=== PATIENT | male | born 1980 | race Caucasian/White ===

== ENCOUNTER 2017-10-27 13:36 | Emergency (ER) | payer BC, SELFPAY ==
[2017-10-27 13:37] VITALS: BP 166/85; PULSE 133; RESP 18; TEMP 36.4; O2SAT 97; BMI 34.4
--- NOTE | 2017-10-27 13:50 | RAD_ITS ---
STUDY: X-RAY - LEFT FOOT CLINICAL: Male, 37 years old. Injury. Pain. Laceration. TECHNIQUE: 4 view(s) of the foot. COMPARISON: None. FINDINGS: Normal talus, calcaneus, and tarsal bones. Normal visualized subtalar, talonavicular, calcaneocuboid, tarsal and tarsometatarsal articulations. Normal metatarsi. Normal metatarsophalangeal joint of the great toe. Normal tibial and fibular sesamoid bones. Normal interphalangeal joint of the great toe. Normal phalanges of the great toe. Normal second through fifth metatarsophalangeal joints. There is subtle lucency with nondisplaced fracture of the tuft of the second toe . There are multiple increased density foreign body structures on the skin or in the soft tissues of the second and third toes . RAD/Foot min 3 Views IMPRESSION: There is nondisplaced fracture of the second distal phalanx. Foreign body material on the skin or soft tissues of the second and third toes Electronically Signed: Alonzo Askew MD at 15:05 EDT , Service support ,
--- NOTE | 2017-10-27 15:16 | ED.VISSUMM ---
- ER Visit Summary Date of Service: 10/27/17 Chief Complaint: Crush injury to left toes History of Present Illness: The patient is a 37 M who dropped a car rotor on his left foot while wearing flip-flops. He notes severe pain to the left second and third toe. He notes abrasions to that area. Physical Examination: There is ecchymosis swelling and superficial abrasion limited range of motion to the second left toe. There is superficial abrasion and minimal pain to the dorsum of the third left toe. Test Results: X-rays revealed a possible nondisplaced talus fracture. However it is not the area that was impacted by the Angelito. Emergency Department Course and Treatment: Patient requested relief from the pain and underwent a digital block of the second toe using Marcaine. This resulted in excellent anesthesia. Wounds were cleansed and dressed. There was a postop shoe applied. I will write for oxycodone. Patient works using steel toed boots in a postop shoe is not an option. I will write him off for a few days. Return if worsening or concerns. Impression: 1. Crush injury left second and third toe 2. Abrasion left second and third toe This note was generated with Molecul[employer] dictation software. It may contain incorrect words, spelling, and punctuation that were not noted in review of the chart prior to signing ED Disposition - Plan for ED Patient: Disposition: Home or Assisted Living Chief Complaint: Lower Extremity Injury Instructions: ED Crush Injury Toe No Fx, ED Fx Toe Closed Prescriptions: Oxycodone [Oxyir] 5 - 10 mg PO Q6H PRN PRN 4 Days #20 tab PRN Reason: Pain Referrals: Aspen Ferguson DPM [STAFF PHYSICIAN] - 10-14 Days if not better
[2017-10-27 15:43] VITALS: RESP 18
[2017-10-27] MEDS: Bupivacaine Mpf 0.5% 30 ML VIAL INFILT (15:44)
== END 2017-10-27 15:44 | disposition home or self-care (01) ==
PROVIDERS: Emergency Provider Emergency Medicine
DX: S97.122A Crushing injury of left lesser toe(s), initial encounter (principal); S90.415A Abrasion, left lesser toe(s), initial encounter; X58.XXXA Exposure to other specified factors, initial encounter; Y93.9 Activity, unspecified; Y92.9 Unspecified place or not applicable; Z72.0 Tobacco use
CPT/HCPCS: 64450; 73630; 99283

== ENCOUNTER 2018-01-14 18:10 | Emergency (ER) | payer BC, SELFPAY ==
[2018-01-14 18:11] VITALS: BP 166/99; PULSE 113; RESP 16; TEMP 36.3; O2SAT 97; BMI 31.5
--- NOTE | 2018-01-14 18:59 | ED.VISSUMM ---
- ER Visit Summary Date of Service: 01/14/18 Chief Complaint: Dental pain History of Present Illness: The patient is a 37 M who had some wisdom teeth extracted this morning. He states his been taking Tylenol and ibuprofen for pain without improvement. Physical Examination: Vital signs significant for blood pressure of 166/99 with a heart rate of 113. Patient sitting upright in bed no acute distress. Head neck examination feels no facial edema or erythema. Intraoral examination reveals the right mandibular molar extraction site to be clean with a clot in place. The right maxillary site is clean with some gum destruction of the lateral surface. There is no trismus. Heart is regular rate and rhythm. Lung sounds are clear. Test Results: Emergency Department Course and Treatment: Patient has been taking ibuprofen along with Tylenol. He is given a dose of OxyIR here. He is given prescriptions for Percocet along with ibuprofen and advised not to take anything in addition [id number]. He is to continue biting on gauze for any minimal remaining bleeding. Treatment Plan: [] Disposition: Discharge Impression: Odontalgia status post dental extraction This note was generated with Chip[employer] dictation software. It may contain incorrect words, spelling, and punctuation that were not noted in review of the chart prior to signing ED Disposition - Plan for ED Patient: Disposition: Home or Assisted Living Chief Complaint: Dental Instructions: ED Tooth Pain Prescriptions: Oxycodone HCl/Acetaminophen [Percocet 5/325] 1 tablet PO Q6H PRN PRN 5 Days #20 tablet PRN Reason: Pain Ibuprofen 600 mg PO TID PRN PRN #20 tablet PRN Reason: Pain Additional Instructions: Follow-up with your dentist as scheduled.
--- NOTE | 2018-01-14 19:02 | DCINST.ED_ITS ---
ED Disposition - Plan for ED Patient: Disposition: Home or Assisted Living Chief Complaint: Dental Instructions: ED Tooth Pain Prescriptions: Oxycodone HCl/Acetaminophen [Percocet 5/325] 1 tablet PO Q6H PRN PRN 5 Days #20 tablet PRN Reason: Pain Ibuprofen 600 mg PO TID PRN PRN #20 tablet PRN Reason: Pain Additional Instructions: Follow-up with your dentist as scheduled.
[2018-01-14] MEDS: oxyCODONE 5 MG Tablet 10 MG PO (19:18)
[2018-01-14 19:20] VITALS: RESP 16
== END 2018-01-14 19:21 | disposition home or self-care (01) ==
PROVIDERS: Emergency Provider Emergency Medicine
DX: K08.89 Other specified disorders of teeth and supporting structures (principal); Z72.0 Tobacco use
CPT/HCPCS: 99283

== ENCOUNTER 2020-01-12 08:46 | Emergency (ER) | payer BC, SELFPAY ==
[2020-01-12 08:46] VITALS: BP 147/105; PULSE 102; RESP 18; TEMP 35.6; O2SAT 100; BMI 33.1
[2020-01-12 08:52] VITALS: RESP 16
--- NOTE | 2020-01-12 09:02 | ED.VISSUMM ---
- ER Visit Summary Date of Service: 01/12/20 Chief Complaint: Back pain History of Present Illness: The patient is a 39 M who presents with back pain that has been getting worse over the past 2 to 3 days. Patient denies any trauma or injury. Patient states the pain is been constant. Patient states the pain is worse with standing from a seated or lying position. Patient states the pain is worse with other movements. Patient states the pain is over the left lower lumbar paraspinal area. Patient denies any radiation of the pain. Patient denies any paresthesias or weakness. Patient denies any bowel or bladder changes. Patient denies any saddle anesthesia. Physical Examination: Vital signs are stable. Patient is afebrile. Patient is in no acute distress. Musculoskeletal exam reveals tenderness over the left lumbar paraspinal muscles. There is some spasm noted over these muscles. There is no midline tenderness. There is no bony crepitance or step-off. There is no edema or ecchymosis. Range of motion was limited in all motions of the lumbar spine secondary to pain. There is no laxity appreciated. Strength is 5/5 bilateral in the upper and lower extremities. There are no sensory deficits noted. Deep tendon reflexes are 2+/4 bilaterally in the lower extremities. Patient is able to heel and toe walk without difficulty. Emergency Department Course and Treatment: Patient was given a dose of Naprosyn here. Patient was given a prescription for Naprosyn. Patient was instructed to use ice to the area. Patient was instructed to avoid any bending or lifting. Patient was instructed to follow-up with his primary care physician in 5 to 7 days. Patient understood and was agreeable with the plan. All questions were answered. Disposition: Discharge home Impression: Lumbosacral strain This note was generated with Hokey Pokey dictation software. It may contain incorrect words, spelling, and punctuation that were not noted in review of the chart prior to signing ED Disposition - Plan for ED Patient: Disposition: Home or Assisted Living Diagnosis: Lumbosacral strain Instructions: ED LUMBAR SPRAIN/STRAIN Prescriptions: Naproxen [Naprosyn] 500 mg PO BID PRN #20 tab Transmission Status: Pending to [id number] Referrals: Barry De Leon MD [STAFF PHYSICIAN] - 5-7 Days
[2020-01-12] MEDS: Naproxen 250 MG Tablet 500 MG PO (09:12)
[2020-01-12 09:16] VITALS: BP 139/113; PULSE 98; RESP 16; O2SAT 98
--- NOTE | 2020-01-12 09:16 | ED.RN ---
REVIEWED D/C INSTRUCTIONS, FOLLOW UP CARE, PRESCRIPTION, AND S/S THAT WOULD WARRANT A RETURN TO THE ED WITH PT. PT ADVISED TO FOLLOW UP WITH PCP REGARDING HIGH BP. PT VERBALIZED AN UNDERSTANDING AND DENIES FURTHER QUESTIONS FOR THIS RN. PT SKIN P/W/D, RESP EVEN AND UNLABORED, PT A&O X 3, NO DISTRESS NOTED. PT AMBULATED OUT OF ED, GAIT STEADY.
== END 2020-01-12 09:17 | disposition home or self-care (01) ==
LOC: ED 09:10
PROVIDERS: Emergency Provider Emergency Medicine
DX: S39.012A Strain of muscle, fascia and tendon of lower back, initial encounter (principal); F17.200 Nicotine dependence, unspecified, uncomplicated; X58.XXXA Exposure to other specified factors, initial encounter
CPT/HCPCS: 99283

== ENCOUNTER 2020-01-20 03:50 | Emergency (ER) | payer BC, SELFPAY ==
[2020-01-20 03:50] VITALS: BP 169/104; PULSE 97; RESP 18; TEMP 37.1; O2SAT 97; BMI 33.6
--- NOTE | 2020-01-20 04:27 | ED.VIS.GEN ---
History of Present Illness Chief Complaint: Eye Problem Narrative: This patient is a 39-year-old male who presents with left eye pain. 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 He was under a truck and some roster fallen down. He was wearing safety glasses but still felt a piece of debris going to his left eye. He irrigated this. Throughout the night he is pain and light sensitivity worsened and he is now complaining of severe left eye pain and light sensitivity tearing and watering. He does wear contacts. He removed contacts after the injury. Past Medical History - Allergies and Home Meds Allergies/Adverse Reactions: Allergies No Known Allergies Allergy (Verified 01/12/20 08:49) Primary Care Physician: Care Physician,No Primary [Primary Care Provider] - Past Medical History: None Smoking Status: Current every day smoker Review of Systems All systems negative except as indicated General: Denies: Fever Eyes: Reports: - - Left eye pain, photophobia, tearing ENT: Denies: Bilateral ear pain Cardiovascular: Denies: Chest pain Respiratory: Denies: Dyspnea Gastrointestinal: Denies: Vomiting Skin: Denies: Rash Neurological: Denies: Headache Hematologic: Denies: Easy bruising Allergy: Denies: Uticaria Physical Exam Vital Signs/Narrative: Vital Signs Temp Pulse Resp BP Pulse Ox 01/20/20 03:50 98.7 F 97 18 169/104 H 97 General: Well nourished Head: Normocephalic Eyes: EOMI, - - Patient has diffuse injection of the left eye eyelids were everted no foreign body was visualized anterior chamber is deep and quiet, a small corneal abrasion is noted at the 2 o'clock position under slit-lamp examination no Marylin sign Neck: Supple Cardiovascular: Regular rate Respiratory: No distress Skin: Normal color Neurological: Alert Psychological: Normal affect Diagnostic/Tx/Re-eval - Medical Decision Making Slit-lamp examination was performed after tetracaine and fluorescein were applied in the left eye. Patient had immediate relief with application of tetracaine. Examination as above. Patient was given ophthalmic gentamicin as well as a prescription for short course of [place] for acute pain control. He requested an eye patch just to cover the eye for his photophobia so this was provided. He was referred to ophthalmology for follow-up. Patient was discharged. ED Disposition - Plan for ED Patient: Disposition: Home or Assisted Living Diagnosis: Corneal abrasion Instructions: ED Corneal Abrasion Prescriptions: Hydrocodone Bitart/Apap 5-325 [[place] 5MG-325MG] 1 tab PO Q6H PRN 2 Days #8 tab PRN Reason: Pain Prescription Printed Referrals: Care Physician,No Primary [Primary Care Provider] - Divina Mijares MD [STAFF PHYSICIAN] -
[2020-01-20] MEDS: Gentamicin Sulfate 1 OPTH.BTL 2 DRP LEFT EYE (04:37)
[2020-01-20] MEDS: Tetracaine 0.5% Ophthalmic Bottle 1 DRP LEFT EYE (04:37)
[2020-01-20] MEDS: Fluorescein 1 MG STRIP 1 STRIP LEFT EYE (04:37)
--- NOTE | 2020-01-20 04:38 | ED.RN ---
PT NOT ABLE TO OPEN EYE ENOUGH TO COMPLETE VISUAL ACUITY.
== END 2020-01-20 04:38 | disposition home or self-care (01) ==
PROVIDERS: Emergency Provider Emergency Medicine
DX: S05.02XA Injury of conjunctiva and corneal abrasion without foreign body, left eye, initial encounter (principal); W22.8XXA Striking against or struck by other objects, initial encounter; Y93.89 Activity, other specified; Y92.9 Unspecified place or not applicable; Y99.0 Civilian activity done for income or pay; F17.200 Nicotine dependence, unspecified, uncomplicated
CPT/HCPCS: 99284

== ENCOUNTER 2021-02-07 07:20 | Emergency (ER) | payer OTHER, SELFPAY ==
[2021-02-07 07:21] VITALS: BP 157/103; PULSE 96; RESP 16; TEMP 36; O2SAT 97; BMI 34.4
--- NOTE | 2021-02-07 07:36 | EX.ED.DYSGE1 ---
HPI History of Present Illness Chief Complaint: Headache Detail of Chief Complaint: General illness for 3 days Informant: patient Narrative Narrative: Patient presents to the emergency department stating he is not been feeling well for the last 3 days. Patient initially started with a headache and then started having vomiting and diarrhea. Patient having small amounts of watery stools frequently. Patient states that he is not thrown up since yesterday. He denies fevers. He does have a cough. He complains of body aches. He has not had the Covid vaccine. He denies Covid exposures. No sick contacts known. PFSH PFS Home Medications NK 02/07/21 [History Last Taken Unknown] Allergy/AdvReac Type Severity Reaction Status Date / Time No Known Allergies Allergy Verified 02/07/21 07:23 Social History Smoking Status: Current every day smoker tobacco type: cigarettes ROS ROS ED Constitutional Constitutional ED: Reports systems reviewed and no addt'l complaints, except as documented; Denies body ache(s), change in weight or chills Eyes Eyes: Denies acute decrease in peripheral vision, change in vision, double vision or loss of vision ENT ENT ED: Reports none; Denies ear pain, lip swelling, loss taste/smell, neck pain, otalgia or sore throat Cardiovascular Cardiovascular: Reports none; Denies abdominal pain, chest pain with activity, leg edema, lightheadedness, palpitations, rapid heart rate or syncope Respiratory/Chest Respiratory/Chest: Reports none and cough; Denies change in mental status, dry cough, dyspnea, hemoptysis, shortness of breath at rest or shortness of breath with exertion Gastrointestinal Gastrointestinal: Reports none, diarrhea, nausea and vomiting; Denies abdominal pain, change in stool character, hematemesis, hematochezia, melena or rectal bleeding Genitourinary Genitourinary ED: Reports none; Denies abdominal discomfort, anuria, dysuria, genital pain or polyuria Musculoskeletal Musculoskeletal: Reports none and myalgias; Denies arthralgias, back pain, difficulty walking, extremity pain or muscle weakness Integumentary Reports none; Denies abscess or rash Neurologic Neurologic: Reports none and headache(s); Denies abnormal gait, confusion, focal weakness, frequent falls, loss of vision, numbness, paresthesias, radicular pain, vertigo or weakness Psychiatric Psychiatric: Reports systems reviewed and no addt'l complaints, except as documented and none; Denies behavioral changes, confusion, difficulty concentrating, hallucinations, suicidal ideation, tactile hallucinations or visual hallucinations Endocrine Endocrinology: Denies none, cold intolerance, excessive sweating, fatigue or heat intolerance Hematologic/Lymphatic Hematologic/Lymphatic: Reports none; Denies anemia, easy bleeding or easy bruising Allergic/Immunologic Allergic/Immunologic ED: Denies as per HPI, none, lip swelling, mouth swelling, throat swelling, tongue swelling or hives EXAM Physical Exam Const Vital Signs: 02/07/21 07:21 Temperature 96.8 F L Temperature Source Temporal Pulse Rate 96 Respiratory Rate 16 Blood Pressure 157/103 H Blood Pressure Mean 121 Pulse Ox 97 Oxygen Delivery Method Room Air Positive well nourished and well developed General Appearance ED: well developed and NAD HEENT Reports TM's clear and moist mucous membranes normocephalic and atraumatic; Negative for trauma or tenderness Tympanic Membrane ED: Yes TM's clear Eyes PERRL and EOMs intact bilaterally General Eye ED: Negative for pale conjunctiva or scleral icterus Neck no lymphadenopathy, supple and no JVD General: Negative for tenderness Chest Wall inspection of chest normal and palpation of chest normal Chest: Negative for tenderness Resp normal respiratory effort and clear to auscultation bilaterally Effort and Inspection: Negative for respiratory distress or pain with movement Auscultation: Negative for rhonchi, wheezes or diminished lung sounds Cardio regular rate, regular rhythm, S1 normal heart sound, S2 normal heart sound and no murmurs Peripheral Pulses: pulses 2+ throughout GI normal to inspection, nondistended, normoactive bowel sounds, soft to palpation, non-tender, non-distended and no masses Back/Spine no CVA tenderness and no thoracic nor lumbar tenderness Extremity normal to inspection General Extremety ED: Negative for edema General Extremity: Negative for edema Neuro oriented x3, CN's II-XII intact bilaterally, no sensory deficits noted and gait normal Sensorium / Orientation: awake, alert, oriented to person, oriented to place and oriented to time Motor Exam: strength 5/5 throughout and strength abnormal Psych mental status grossly normal Skin no rashes or lesions noted and no wounds MDM MDM MDM Narrative Medical decision making narrative: Rapid Covid test was negative. I will send off a PCR test. It is possible he may have a gastroenteritis that seems to be improving. He will be written off work for today. If his PCR test is positive he is to quarantine for 10 days. Patient advised to push fluids and use ibuprofen or Tylenol for discomfort. Lab Data Attestation: I reviewed the patient's lab results. Discharge Plan Triage Chief Complaint: Headache ED Provider: Braydon Simon Dx/Rx/DC Orders Clinical Impression: Viral syndrome Instructions: ED Viral Syndrome (Adult) Prescriptions: No Action NK RF: 0 Primary Care Provider: Care Physician,No Primary Referrals: Last Greenwood MD [STAFF PHYSICIAN] - 3-5 Days Care Physician,No Primary [Primary Care Provider] - Disposition Disposition: Home, Self Care
[2021-02-07 09:24] VITALS: BP 138/74; PULSE 62; RESP 15; O2SAT 98
[2021-02-07 22:31] LABS: Probe Check PASS; Specimen Processing Control PASS
== END 2021-02-07 09:24 | disposition home or self-care (01) ==
PROVIDERS: Emergency Provider Emergency Medicine
DX: B34.9 Viral infection, unspecified (principal); F17.210 Nicotine dependence, cigarettes, uncomplicated
CPT/HCPCS: 87426; 87635; 99282; U0005; U0003

== ENCOUNTER 2023-12-17 05:15 | Emergency (ER) | payer SELFPAY ==
[2023-12-17 05:16] VITALS: BP 145/89; PULSE 111; RESP 18; TEMP 36.8; O2SAT 96; BMI 36.7
[2023-12-17 05:18] VITALS: BP 145/89; PULSE 110; RESP 18; TEMP 36.8; O2SAT 98
--- NOTE | 2023-12-17 05:59 | ED.VIS.DYS ---
HPI History of Present Illness Chief Complaint: Shortness of Breath Informant: patient Onset/Context/Timing Onset: Yesterday Context: gradual Timing: Continuous Quality: Positive for Orthopnea Worsened by: Lying flat Relieved by: - (Cold air) Associated Symptoms cough and rhinorrhea; Negative for ear pain, fever, sore throat, chills, clear sputum, white sputum, yellow sputum or green sputum Narrative Narrative: Patient presents with shortness of breath that began yesterday. Patient states it is greatly gotten worse. Patient states it is constant. Patient states his breathing is worse with laying flat. Patient states he got better when he went out into the cold air. Patient admits to a cough but denies any sputum production. Patient does admit to some rhinorrhea. Patient admits to some burning pain in his chest. Patient states it feels like his lungs are burning. Patient does admit to recent car ride to [place] last week. Patient states he did get out of the car periodically and ambulated. Patient denies any history of PE or cancer. Patient denies any recent surgery. 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) Home Medications ?Medication ?Instructions ?Recorded ?Last Taken ?Type albuterol sulfate 90 mcg/actuation 1 - 2 puff inhalation Q4H PRN PRN 12/17/23 Unknown Rx aerosol inhaler (Ventolin HFA) Wheezing ##1 Allergy/AdvReac Type Severity Reaction Status Date / Time No Known Allergies Allergy Verified 12/17/23 05:19 Social History Smoking Status: Current every day smoker tobacco type: cigarettes ROS ROS ED Constitutional Constitutional ED: Denies chills or fever(s) Eyes Eyes: Reports blurry vision; Denies diplopia ENT ENT ED: Denies rhinorrhea or sore throat Cardiovascular Cardiovascular: Reports chest pain; Denies palpitations Respiratory/Chest Respiratory/Chest: Reports cough and dyspnea Gastrointestinal Gastrointestinal: Denies nausea or vomiting Genitourinary Genitourinary ED: Denies dysuria or hematuria Musculoskeletal Musculoskeletal: Denies back pain or neck pain Integumentary Denies abscess or rash Neurologic Neurologic: Reports headache(s); Denies weakness Allergic/Immunologic Allergic/Immunologic ED: Denies mouth swelling or urticaria EXAM Physical Exam Const Vital Signs: 12/17/23 05:16 12/17/23 05:18 12/17/23 06:33 Temperature 98.3 F 98.3 F Temperature Source Oral Oral Pulse Rate 111 H 110 H 100 Respiratory Rate 18 18 17 Respiratory Effort Respiratory Depth Respiratory Pattern Normal Blood Pressure 145/89 H 145/89 H Blood Pressure Mean 107 107 Pulse Ox 96 98 Oxygen Delivery Method Room Air Room Air 12/17/23 06:33 12/17/23 07:16 12/17/23 07:18 Temperature 98.2 F Temperature Source Temporal Pulse Rate 111 H 105 H Respiratory Rate 20 H 24 H Respiratory Effort Short of Breath Respiratory Depth Shallow Respiratory Pattern Normal Blood Pressure 134/80 H 134/80 H Blood Pressure Mean 98 98 Pulse Ox 95 96 Oxygen Delivery Method Room Air Room Air Room Air Positive well nourished and well developed General Appearance ED: well developed and NAD HEENT Reports moist mucous membranes Neck supple and no JVD Resp normal respiratory effort and clear to auscultation bilaterally Cardio regular rhythm Rate: tachycardic GI non-tender and non-distended Palpation: soft Neuro oriented x3, CN's II-XII intact bilaterally and no sensory deficits noted [place] Coma Scale: document GCS findings Spontaneous Obeys Commands Oriented 15 Sensorium / Orientation: alert Speech: speech normal Motor Exam: strength 5/5 throughout Psych mental status grossly normal MDM MDM MDM Narrative Medical decision making narrative: Differential diagnosis includes pneumonia, bronchitis, pulmonary embolism, congestive heart failure, and viral illness. Chest x-ray will be obtained to assess for pneumonia and congestive heart failure. EKG will be obtained to assess for cardiac dysrhythmia and cardiac ischemia. CBC will be obtained to assess for leukocytosis and anemia. Basic metabolic profile will be obtained to assess for renal function and electrolyte abnormality. D-dimer will be obtained to assess for pulmonary embolism. BNP will be obtained to assess for congestive heart failure. High-sensitivity troponin will be obtained to assess for cardiac ischemia. COVID-19, influenza, and RSV PCR will be obtained to assess for viral illness. Lab Data Attestation: I reviewed the patient's lab results. Lab results narrative: CBC was reviewed. There is a leukocytosis of 14.0. The remainder is within normal limits. Basic metabolic profile was reviewed and was within normal limits. High-sensitivity troponin was reviewed and was normal at 3. D-dimer was reviewed and was normal at less than 0.27. COVID-19 PCR was reviewed and was negative. Influenza PCR was reviewed and was negative for influenza A and influenza B. RSV PCR was reviewed and was negative. Labs: Laboratory Results - last 24 hr 12/17/23 05:35 WBC 14.0 H RBC 4.86 Hgb 14.8 Hct 43.9 MCV 90.3 MCH 30.5 MCHC 33.7 RDW Std Deviation 42.9 RDW Coeff of Keyur 13.1 Plt Count 248 MPV 10.0 Immature Gran % (Auto) 0.500 Neut % (Auto) 65.8 Lymph % (Auto) 23.6 [place] % (Auto) 7.3 Eos % (Auto) 2.0 Baso % (Auto) 0.8 Absolute Neuts (auto) 9.2 H Absolute Lymphs (auto) 3.30 Nucleated RBC % 0 D-Dimer Quant (PE/DVT) < 0.27 L Sodium 136 Potassium 3.8 Chloride 104 Carbon Dioxide 26.0 Anion Gap 6 BUN 14 Creatinine 0.90 Estim Creat Clear Calc 136.53 Est GFR (MDRD) Af Amer 119 Est GFR (MDRD) Non-Af 98 BUN/Creatinine Ratio 15.5 Glucose 138 H Calcium 8.8 Troponin I High Sens 3 Radiography Chest X-Ray - ED: 2 View, Read by ED Physician, Read by Radiologist and No Acute Disease Diagnostic Testing: Clinical Impression(s) from Imaging Studies Chest X-Ray 12/17/23 06:05 IMPRESSION: No evidence of active intrathoracic disease. Electronically Signed: Zehra Mercer MD at 7:16 EDT , PA and lateral chest x-ray was obtained. There are 2 views. On my independent interpretation, lung larios are clear. There is normal cardiac silhouette. Bony thorax is normal. There is no acute process noted. Radiologist also interpreted the x-ray and agrees. EKG Initial EKG: Attestation: I personally reviewed and interpreted this EKG as follows: Interpretation: Sinus Rhythm (96), No Acute Injury Pattern and RBBB (Incomplete) Comments: EKG was obtained. On my independent interpretation, it showed a normal sinus rhythm with a rate of 96. AR interval, QRS interval, and QTc intervals were all normal. [place] was normal. There are no acute ST or T wave changes. There is an incomplete right bundle branch block pattern noted. Prior EKG tracings: not available for review Prior: No Prior Treatment and Re-Evaluation :: Patient was given a DuoNeb aerosol here. Patient is feeling better on reevaluation. Patient was advised of his findings. Patient was given a prescription for an albuterol inhaler. Patient was instructed to drink plenty of fluids. Patient was instructed to take Tylenol or ibuprofen as needed for any aches or fevers. Patient was instructed to follow-up with his primary care physician in 5 to 7 days. Patient understood and was agreeable with the plan. All questions were answered. Discharge Plan Triage Chief Complaint: Shortness of Breath ED Provider: Hiren Smith Dx/Rx/DC Orders Clinical Impression: Acute bronchitis, Viral URI Instructions: ED Bronchitis, No Antibiotic (Adult), ED URI, Viral, No Abx (Adult) Prescriptions: New albuterol sulfate [Ventolin HFA] 90 mcg/actuation HFA aerosol inhaler 1 - 2 puff inhalation Q4H PRN PRN (Reason: Wheezing) Qty: 1 0RF Stand Alone Forms: ED Work / School Excuse Primary Care Provider: Care Physician,No Primary Referrals: Eveline Medina MD [Med Staff - Information Systems Planner] - 5-7 Days Care Physician,No Primary [Primary Care Provider] - Print Language: [place] Citizen Disposition Disposition: Home, Self Care
--- NOTE | 2023-12-17 06:05 | RAD_ITS ---
INDICATION: COUGH EXAMINATION/TECHNIQUE: X-RAY - XR Chest 2 Views COMPARISON: No relevant prior comparison study available FINDINGS: LINES/DEVICES: None. LUNGS: No consolidation. No pneumothorax. MEDIASTINUM: Unremarkable. CARDIAC SILHOUETTE: Not enlarged. BONES AND SOFT TISSUES: No acute abnormalities. RAD/Chest PA and Lateral IMPRESSION: No evidence of active intrathoracic disease. Electronically Signed: Zehra Mercer MD at 7:16 EDT ,
--- NOTE | 2023-12-17 06:05 | EKG12_ITS ---
Test Reason : SOB Blood Pressure : / mmHG Vent. Rate : 096 BPM Atrial Rate : 096 BPM P-R Int : 130 ms QRS Dur : 104 ms QT Int : 348 ms P-R-T Axes : 014 -04 014 degrees QTc Int : 439 ms Normal sinus rhythm Incomplete right bundle branch block Borderline ECG Confirmed by ARISTIDES PECK, SARAH BETH ([id number]), scientific editor JORGE GONG ([id number]) on 12/18/2023 10:36:04 AM Referred By: Confirmed By:SARAH BETH IRVING MD
[2023-12-17 06:15] LABS: Absolute Neutrophil Count 9.2 X10^3/uL (2.0-7.7); Basophil# 0.11 X10^3/uL; Basophil% 0.8 % (0-1); Eosinophil# 0.28 X10^3/uL; Hematocrit 43.9 % (40-54); Hemoglobin 14.8 g/dL (13.0-16.5); Lymphocyte % 23.6 % (19-41); Mean Corp Hgb Conc 33.7 g/dL (32-36); Mean Corpuscular Hgb 30.5 pg (27.0-32.0); Mean Corpuscular Volume 90.3 fL (80-94); Monocyte# 1.02 X10^3/uL; Monocyte% 7.3 % (0-10); NRBC Flagged by Analyzer 0 % (0-5); Neutrophil # 9.23 X10^3/uL (2.7-7.7); Neutrophil % 65.8 % (47-70); Platelet Count 248 K/mm3 (150-450); RBC Distribution Width CV 13.1 % (11.6-14.6); RBC Distribution Width SD 42.9 fl (35.1-43.9); Red Blood Count 4.86 M/mm3 (4.6-6.2)
[2023-12-17 06:31] LABS: Anion Gap 6 (5-15); BUN 14 mg/dL (7-18); BUN/Creat Ratio 15.5 RATIO (10-20); Calcium,Total 8.8 mg/dL (8.5-10.1); Chloride 104 mmol/L (98-107); EST Glomerular Filtration Rate 98 mL/min (>60); Est Glom Filt Rate - Afr Amer 119 mL/min (>60); Estimated Creatinine Clearance 136.53 ml/min; Glucose 138 mg/dL (74-106); Potassium 3.8 mmol/L (3.5-5.1); Sodium Level 136 mmol/L (136-145); Troponin-I HS 3 pg/mL (3.0-78.0)
[2023-12-17] MEDS: Ipratropium/Albuterol Sulfate 3 ML AMPUL.NEB INHALATION (06:32)
[2023-12-17 06:33] VITALS: PULSE 100; RESP 17; O2SAT 98
[2023-12-17 06:41] LABS: D-Dimer Quantitative (DVT/PE) < 0.27 FEU/ug/m (0.27-0.49)
[2023-12-17 07:16] VITALS: BP 134/80; PULSE 111; RESP 20; O2SAT 95
[2023-12-17 07:18] VITALS: BP 134/80; PULSE 105; RESP 24; TEMP 36.8; O2SAT 96
[2023-12-17 07:50] VITALS: BP 127/92; PULSE 104; RESP 20; TEMP 36.9; O2SAT 94
[2023-12-17 08:00] LABS: BNP,B-Type NATRIURETIC PEPTIDE 4.3 pg/mL (0-100)
== END 2023-12-17 07:50 | disposition home or self-care (01) ==
PROVIDERS: Emergency Provider Emergency Medicine; Visit Provider Emergency Medicine
DX: J20.9 Acute bronchitis, unspecified (principal); J06.9 Acute upper respiratory infection, unspecified; F17.210 Nicotine dependence, cigarettes, uncomplicated
CPT/HCPCS: 71046; 80048; 83880; 84484; 85025; 85379; 87631; 93005; 94640; 99284

== ENCOUNTER 2023-12-22 09:19 | Inpatient (IN) | payer SELFPAY ==
[2023-12-22] VITALS (15 sets, daily range): BP systolic 128–156; BP diastolic 79–116; PULSE 90–105; RESP 16–93; TEMP 36.6–37.2; O2SAT 88–96; BMI 34.6
--- NOTE | 2023-12-22 10:07 | ED.VIS.DYS ---
HPI History of Present Illness Chief Complaint: Shortness of Breath Detail of Chief Complaint: Shortness of breath Informant: patient Narrative Narrative: Patient presents with shortness of breath that started about a week ago. Patient states that he is gotten worse over the last 5 days. He was seen in the emergency department 5 days ago with some burning in his chest and was diagnosed with some bronchitis. Patient states that he thinks he had blood work as well as a chest x-ray and testing for COVID flu and RSV which was negative. Patient complains of exertional dyspnea. He continues to wheeze. He had temperature up to 101 a few days ago and this morning was 99. Patient did travel to [place] about a week before all this started. No history of PE or DVT. He describes some burning in his chest and pain from coughing in his muscles in his chest and upper abdomen. He tells me his had no appetite. [facility] Medical History Encounter for examination required by Department of Transportation (DOT) Home Medications ?Medication ?Instructions ?Recorded ?Last Taken ?Type albuterol sulfate 90 mcg/actuation 1 - 2 puff inhalation Q4H PRN PRN 12/17/23 Unknown Rx aerosol inhaler (Ventolin HFA) Wheezing ##1 Allergy/AdvReac Type Severity Reaction Status Date / Time No Known Allergies Allergy Verified 12/17/23 05:19 Social History Smoking Status: Current every day smoker tobacco type: cigarettes ROS ROS ED Review of Systems ROS Unobtainable: other Constitutional Constitutional ED: Denies chills, fever(s), lethargy, sweats or weight loss Eyes Eyes: Denies blurry vision, change in vision or diplopia ENT ENT ED: Denies rhinorrhea or sore throat Cardiovascular Cardiovascular: Reports chest pain; Denies orthopnea or racing heartbeat Respiratory/Chest Respiratory/Chest: Reports cough, dyspnea and dyspnea on exertion; Denies orthopnea or sputum Gastrointestinal Gastrointestinal: Denies abdominal pain, diarrhea, nausea or vomiting Genitourinary Genitourinary ED: Denies dysuria, hematuria or urinary frequency Musculoskeletal Musculoskeletal: Denies arthralgias, back pain, myalgias or neck pain Integumentary Denies abscess, Abrasions or rash Neurologic Neurologic: Denies headache(s) or weakness Psychiatric Psychiatric: Denies anxiety, depression or suicidal thoughts Endocrine Endocrinology: Denies polydipsia, polyphagia or polyuria Hematologic/Lymphatic Hematologic/Lymphatic: Denies easy bleeding, easy bruising or lymphadenopathy Allergic/Immunologic Allergic/Immunologic ED: Denies mouth swelling, tongue swelling or urticaria EXAM Physical Exam Const Vital Signs: 12/22/23 09:21 12/22/23 09:36 12/22/23 10:06 Temperature 99 F Temperature Source Oral Pulse Rate 99 Respiratory Rate 20 H Respiratory Depth Shallow Blood Pressure 136/90 H Blood Pressure Mean 105 Pulse Ox Oxygen Delivery Method Room Air Room Air Room Air Oxygen Flow Rate (L/min) 95 12/22/23 10:14 12/22/23 10:26 12/22/23 10:57 Temperature 98 F Temperature Source Oral Pulse Rate 92 102 H Respiratory Rate 16 19 H Respiratory Depth Blood Pressure 139/89 H Blood Pressure Mean 105 Pulse Ox 95 88 Oxygen Delivery Method Room Air Room Air Oxygen Flow Rate (L/min) 12/22/23 10:57 12/22/23 10:58 12/22/23 12:00 Temperature 98.2 F 97.8 F Temperature Source Oral Temporal Pulse Rate 98 93 Respiratory Rate 93 H 20 H 23 H Respiratory Depth Blood Pressure 128/79 H 146/95 H Blood Pressure Mean 95 112 Pulse Ox 92 90 Oxygen Delivery Method Nasal Cannula Nasal Cannula Nasal Cannula Oxygen Flow Rate (L/min) 2 2 2 Positive well nourished and well developed General Appearance ED: well developed and NAD HEENT Reports TM's clear and moist mucous membranes normocephalic and atraumatic; Negative for trauma or tenderness Tympanic Membrane ED: Yes TM's clear Eyes PERRL and EOMs intact bilaterally General Eye ED: Negative for pale conjunctiva or scleral icterus Neck no lymphadenopathy, supple and no JVD General: Negative for tenderness Chest Wall inspection of chest normal and palpation of chest normal Chest: Negative for tenderness Resp normal respiratory effort and No clear to auscultation bilaterally Resp Narrative: Patient with coarse rhonchi bilaterally and expiratory wheezes bilaterally. No significant tachypnea. No clinical research scientist muscle use or retractions. No conversational dyspnea. Effort and Inspection: Negative for respiratory distress or pain with movement Auscultation: wheezes; Negative for rhonchi or diminished lung sounds Cardio regular rate, regular rhythm, S1 normal heart sound, S2 normal heart sound and no murmurs Peripheral Pulses: pulses 2+ throughout GI normal to inspection, nondistended, normoactive bowel sounds, soft to palpation, non-tender, non-distended and no masses Back/Spine no CVA tenderness and no thoracic nor lumbar tenderness Extremity normal to inspection General Extremety ED: Negative for edema General Extremity: Negative for edema Neuro oriented x3, CN's II-XII intact bilaterally, no sensory deficits noted and gait normal Sensorium / Orientation: awake, alert, oriented to person, oriented to place and oriented to time Motor Exam: strength 5/5 throughout and strength abnormal Psych mental status grossly normal Skin no rashes or lesions noted and no wounds MDM MDM MDM Narrative Medical decision making narrative: Patient presents with increasing shortness of breath with exertion as well as fever. In the differential would be pneumonia versus viral etiology versus pneumothorax or other process. PE would be in the differential. IV line established. CBC with differential white count 17.2 with hemoglobin 14 and platelet count of 322. Chemistries unremarkable. D-dimer normal at 0.37. Troponin normal at 5. EKG obtained showed sinus rhythm with rate of 95 bpm with no acute ST segment changes. On chest x-ray as noted he has a left lower lobe infiltrate and developing consolidation. Patient was started on Rocephin and Zithromax IV. Initially he was given DuoNeb aerosol as well as albuterol and started on Solu-Medrol. Patient had to be started on oxygen as his O2 sat was maintaining in the 88% range and was started on 2 L nasal cannula O2. On 2 L he is right around 90%. Case will be discussed with hospitalist for admission Lab Data Attestation: I reviewed the patient's lab results. Labs: Laboratory Results - last 24 hr 12/22/23 09:25 WBC 17.2 H RBC 4.74 Hgb 14.3 Hct 42.4 MCV 89.5 MCH 30.2 MCHC 33.7 RDW Std Deviation 42.9 RDW Coeff of Keyur 13.0 Plt Count 322 MPV 10.3 Immature Gran % (Auto) 0.500 Neut % (Auto) 78.1 H Lymph % (Auto) 12.8 L Noble % (Auto) 6.4 Eos % (Auto) 1.6 Baso % (Auto) 0.6 Absolute Neuts (auto) 13.5 H Absolute Lymphs (auto) 2.20 Nucleated RBC % 0 D-Dimer Quant (PE/DVT) 0.37 Sodium 137 Potassium 3.6 Chloride 104 Carbon Dioxide 26.0 Anion Gap 7 BUN 9 Creatinine 0.87 Estim Creat Clear Calc 137.08 Est GFR (MDRD) Af Amer 123 Est GFR (MDRD) Non-Af 102 BUN/Creatinine Ratio 10.3 Glucose 164 H Calcium 9.3 Troponin I High Sens 5 Radiography Diagnostic Testing: Clinical Impression(s) from Imaging Studies Chest X-Ray 12/22/23 10:33 IMPRESSION: 1. Interval development of mild left lower lobe basilar atelectasis with trace pleural fluid and developing consolidation. The remaining bilateral lung larios are clear. Electronically Signed: Agustín Houston MD at 11:30 EDT Reading Location ID and State: [address] [place] [address] , Service support , Chest CTA 12/22/23 12:52 IMPRESSION: 1. Moderate left lower lobe atelectasis with air bronchograms and mild superimposed patchy pneumonic consolidation with interstitial thickening and edema in the surrounding parenchyma is present. The remaining bilateral lung larios are clear. No demonstrated pleural effusion. Normal trachea and mainstem bilateral bronchi. 2. No demonstrated pulmonary embolism or arterial dissection. 3. A follow-up exam should be obtained within one month of treatment to ensure the process clears and no occult process is present. Electronically Signed: Agustín Houston MD at 15:32 EDT , 1 view chest x-ray obtained interpreted by myself is left lower lobe infiltrate. Radiology in agreement. EKG Initial EKG: Attestation: I personally reviewed and interpreted this EKG as follows: Comments: Sinus rhythm with ventricular rate 95 bpm with no acute ST segment changes Discharge Plan Dx/Rx/DC Orders Clinical Impression: Pneumonia, Hypoxemia, Leukocytosis Disposition Disposition: Acute Care Hospital [facility] Discharge Date/Time: 12/22/23 15:41
[2023-12-22] MEDS: Albuterol 2.5 MG/3 ML VIAL.NEB. INHALATION (10:11)
[2023-12-22] MEDS: Ipratropium/Albuterol Sulfate 3 ML AMPUL.NEB INHALATION ×2 (10:11→20:00)
[2023-12-22] MEDS: MethylPREDNISolone 125 MG/2 ML Vial IV (10:14)
[2023-12-22] MEDS: 0.9% Normal Saline (1000mL) 1,000 ML 150 ML IV (10:14)
[2023-12-22 10:33] LABS: Absolute Neutrophil Count 13.5 X10^3/uL (2.0-7.7); Basophil# 0.11 X10^3/uL; Basophil% 0.6 % (0-1); Eosinophil# 0.27 X10^3/uL; Eosinophils% 1.6 % (0-5); Hematocrit 42.4 % (40-54); Hemoglobin 14.3 g/dL (13.0-16.5); Lymphocyte % 12.8 % (19-41); Mean Corp Hgb Conc 33.7 g/dL (32-36); Mean Corpuscular Hgb 30.2 pg (27.0-32.0); Mean Corpuscular Volume 89.5 fL (80-94); Mean Platelet Vol. 10.3 fl (6.2-12.0); Monocyte% 6.4 % (0-10); NRBC Flagged by Analyzer 0 % (0-5); Neutrophil # 13.47 X10^3/uL (2.7-7.7); Neutrophil % 78.1 % (47-70); Platelet Count 322 K/mm3 (150-450); RBC Distribution Width SD 42.9 fl (35.1-43.9); Red Blood Count 4.74 M/mm3 (4.6-6.2); White Blood Count 17.2 K/mm3 (4.4-11.0)
--- NOTE | 2023-12-22 10:33 | RAD_ITS ---
STUDY: X-RAY CHEST REASON FOR EXAM: Male, 43 years old. dyspnea TECHNIQUE: PA and lateral views of the chest. COMPARISON: December 17, 2023 FINDINGS: Interval development of mild left lower lobe basilar atelectasis with trace pleural fluid and developing consolidation. The remaining bilateral lung larios are clear. Normal size heart. Normal mediastinum and mg. Normal visualized pulmonary arteries. Normal visualized aortic arch and descending thoracic aorta. Normal visualized thoracic spine. Normal visualized ribs, clavicles, and shoulders. There is no demonstrated abnormality of the visualized soft tissue structures of the upper abdomen. RAD/Chest PA and Lateral IMPRESSION: 1. Interval development of mild left lower lobe basilar atelectasis with trace pleural fluid and developing consolidation. The remaining bilateral lung larios are clear. Electronically Signed: Agustín Houston MD at 11:30 EDT ,
[2023-12-22 10:40] LABS: D-Dimer Quantitative (DVT/PE) 0.37 FEU/ug/m (0.27-0.49)
[2023-12-22 10:49] LABS: Anion Gap 7 (5-15); BUN 9 mg/dL (7-18); BUN/Creat Ratio 10.3 RATIO (10-20); Calcium,Total 9.3 mg/dL (8.5-10.1); Chloride 104 mmol/L (98-107); Creatinine, Serum 0.87 mg/dL (0.70-1.30); EST Glomerular Filtration Rate 102 mL/min (>60); Est Glom Filt Rate - Afr Amer 123 mL/min (>60); Estimated Creatinine Clearance 137.08 ml/min; Glucose 164 mg/dL (74-106); Potassium 3.6 mmol/L (3.5-5.1); Sodium Level 137 mmol/L (136-145); Troponin-I HS 5 pg/mL (3.0-78.0)
--- NOTE | 2023-12-22 12:50 | PCM.HP.STD ---
HPI - General General Date of Admission: 12/22/23 Date of Service: 12/22/23 Chief Complaint: Worsening shortness of breath with cough HPI Narrative TROY FUNES, is a 43 M who presented to [facility] ED on 12/22/2023 with worsening shortness of breath and cough. Saw patient at bedside in the ED, present. Patient was seen in the ED on 12/16 for similar symptoms. He states that the symptoms started a day or 2 prior to that visit. Workup then was largely negative and it was suspected that he had a viral bronchitis, and he was discharged home in the ED. He notably was given a DuoNeb treatment during that ED visit with some improvement. He states that since that ED visit he has had no improvement and symptoms have somewhat worsened. He and note that he is essentially never sick. He is a current smoker, smokes about 1/2 pack/day and is smoked for about 10 to 15 years. On arrival today he was noted to be hypoxic to the mid 80s on room air. Improved to the high 80s to low 90s on 2 L nasal cannula. Chest x-ray showed interval development of mild left lower lobe consolidation concerning for pneumonia in comparison to chest x-ray from 12/16. CTA chest was negative for PE, showed a moderate left lower lobe atelectasis with air bronchograms and mild superimposed patchy pneumonic consolidation consistent with pneumonia. Had leukocytosis to 17,000 noted. Was otherwise afebrile and hemodynamically stable. Given suspected community-acquired pneumonia with hypoxia, hospitalist was contacted for admission. Patient was breathing comfortably on 2 L nasal cannula when I saw him. He had no conversational dyspnea. He did have several short coughing episodes during our encounter but no sputum production. States that he only occasionally has had sputum production and it has been fairly clear to yellow-tinged. He otherwise states that his appetite has been fairly poor over the last few days and he is lost some weight. Denies any fevers or chills. No other acute concerns at this time. [facility] Medical History Encounter for examination required by Department of Transportation (DOT) Home Medications ?Medication ?Instructions ?Recorded ?Last Taken ?Type albuterol sulfate 90 mcg/actuation 1 - 2 puff inhalation Q4H PRN PRN 12/17/23 Unknown Rx aerosol inhaler (Ventolin HFA) Wheezing ##1 Allergy/AdvReac Type Severity Reaction Status Date / Time No Known Allergies Allergy Verified 12/17/23 05:19 Social History Smoking Status: Current every day smoker tobacco type: cigarettes ROS Constitutional Constitutional: Reports fatigue; Denies chills, fever(s) or weakness Eyes Eyes: Denies change in vision Cardiovascular Cardiovascular: Denies chest pain Respiratory/Chest Respiratory/Chest: Reports cough and shortness of breath with exertion; Denies productive cough, shortness of breath at rest or wheezing Gastrointestinal Gastrointestinal: Denies abdominal pain, nausea or vomiting Genitourinary Genitourinary: Denies dysuria Musculoskeletal Musculoskeletal: Denies arthralgias or myalgias Neurologic Neurologic: Denies dizziness, focal weakness or headache(s) Vital Signs Vital Signs Vital Signs: 12/22/23 09:21 12/22/23 09:36 12/22/23 10:06 Temperature 99 F Temperature Source Oral Pulse Rate 99 Respiratory Rate 20 H Respiratory Depth Shallow Blood Pressure 136/90 H Blood Pressure Mean 105 Pulse Ox Oxygen Delivery Method Room Air Room Air Room Air Oxygen Flow Rate (L/min) 95 12/22/23 10:14 12/22/23 10:26 12/22/23 10:57 Temperature 98 F Temperature Source Oral Pulse Rate 92 102 H Respiratory Rate 16 19 H Respiratory Depth Blood Pressure 139/89 H Blood Pressure Mean 105 Pulse Ox 95 88 Oxygen Delivery Method Room Air Room Air Oxygen Flow Rate (L/min) 12/22/23 10:57 12/22/23 10:58 12/22/23 12:00 Temperature 98.2 F 97.8 F Temperature Source Oral Temporal Pulse Rate 98 93 Respiratory Rate 93 H 20 H 23 H Respiratory Depth Blood Pressure 128/79 H 146/95 H Blood Pressure Mean 95 112 Pulse Ox 92 90 Oxygen Delivery Method Nasal Cannula Nasal Cannula Nasal Cannula Oxygen Flow Rate (L/min) 2 2 2 Weight Weight: 109.543 kg Body Mass Index (BMI) 34.6 Physical Exam Const alert, oriented x3 and no apparent distress Constitutional Narrative: Pleasant middle-age male, obese, mildly fatigued appearing, otherwise sitting up comfortably in bed, conversing normally, in no acute distress. General Appearance: cooperative and comfortable HEENT normocephalic, head/scalp atraumatic, hearing grossly normal bilaterally and nasal mucous membranes and turbinates normal Eyes PERRL, EOMs intact bilaterally and conjunctivae normal Neck full ROM Chest inspection of chest normal Resp normal respiratory effort and no use of accessory muscles Resp Narrative: Breathing comfortably on 2 L nasal cannula at rest with oxygen saturations in the low 90s. Mild wheezing noted bilaterally in upper airways with crackles noted in mid left to lower lung. Had multiple short coughing episodes during the encounter. Cardio regular rate, regular rhythm, no murmurs and peripheral pulses 2+ throughout GI normal to inspection, nondistended, normoactive bowel sounds, soft to palpation, non-tender and non-distended Back/Spine normal ROM Extremity normal to inspection, full ROM and no pedal edema Skin no rashes or lesions noted Neuro moves all extremities and no focal motor deficits Speech: speech normal Psych mental status grossly normal Results Lab / Micro Data 12/22/23 09:25 12/22/23 09:25 Labs: Laboratory Results - last 24 hr 12/22/23 09:25: WBC 17.2 H, RBC 4.74, Hgb 14.3, Hct 42.4, MCV 89.5, MCH 30.2, MCHC 33.7, RDW Std Deviation 42.9, RDW Coeff of Keyur 13.0, Plt Count 322, MPV 10.3, Immature Gran % (Auto) 0.500, Neut % (Auto) 78.1 H, Lymph % (Auto) 12.8 L, Burnett % (Auto) 6.4, Eos % (Auto) 1.6, Baso % (Auto) 0.6, Absolute Neuts (auto) 13.5 H, Absolute Lymphs (auto) 2.20, Nucleated RBC % 0, D-Dimer Quant (PE/DVT) 0.37, Sodium 137, Potassium 3.6, Chloride 104, Carbon Dioxide 26.0, Anion Gap 7, BUN 9, Creatinine 0.87, Estim Creat Clear Calc 137.08, Est GFR (MDRD) Af Amer 123, Est GFR (MDRD) Non-Af 102, BUN/Creatinine Ratio 10.3, Glucose 164 H, Calcium 9.3, Troponin I High Sens 5 Imaging Radiology Impression Chest X-Ray 12/22/23 10:33 IMPRESSION: 1. Interval development of mild left lower lobe basilar atelectasis with trace pleural fluid and developing consolidation. The remaining bilateral lung larios are clear. Electronically Signed: Agustín Houston MD at 11:30 EDT , Assessment & Plan Assessment/Plan (1) Community acquired pneumonia: (2) Hypoxia: PLAN: Plan Patient is a 43-year-old male who presented to [facility] ED on 12/22/2023 with worsening cough and shortness of breath. 1. Community-acquired pneumonia with acute mild hypoxia ? Admit under inpatient status to [facility]. CTA chest on admit showed no PE but did show moderate left lower lobe consolidation consistent with pneumonia. Hypoxic to mid 80s on room air in ED, does not wear oxygen at baseline. COVID/flu/RSV negative. Urine antigens negative. Sputum culture and respiratory PCR panel pending. Will treat with IV steroids, IV antibiotics and scheduled DuoNebs for now. Wean supplemental oxygen as able. Will need repeat imaging in 4 to 6 weeks after discharge to confirm resolution of pneumonia process. 2. Tobacco abuse ? Current smoker, smokes about half pack per day. 10 to 15-year smoking history. Encouraged cessation. Nicotine replacement therapy available as needed. 3. Obesity ? BMI 34 on admit. Encouraged lifestyle modifications. Complicates hospital course, care and prognosis. DVT prophylaxis: Lovenox CODE STATUS: Full code, verified Expected disposition: Home, 2 to 3 days Total clinical time spent by myself addressing the patient's medical issues, reviewing all the data, and collaborating with patient's care team: 55 minutes. Charges/Coding Visit Charges Inpatient E&M: 43568 Init Hosp L2
--- NOTE | 2023-12-22 12:52 | CT_ITS ---
STUDY: CTA CHEST REASON FOR EXAM: Male, 43 years old. new onset hypoxia w/ SOB, r/o PE Patient presents with shortness of breath that started about a week ago. Patient states that he is gotten worse over the last 5 days. He was seen in the emergency department 5 days ago with some burning in his chest and was diagnosed with some bronchitis. Patient states that he thinks he had blood work as well as a chest x-ray and testing for COVID flu and RSV which was negative. Patient complains of exertional dyspnea RADIATION DOSAGE (If Supplied By Facility): CTDIvol = ( 12.65 ) mGy, DLP = ( 565.92 ) mGycm TECHNIQUE: The examination was performed with the intravenous administration of IV 100mL [id number]-[id number]. Post-processing of the angiographic images was performed, with multiplanar reformation and 3D reconstruction. Mild respiratory motion artifact is present. Individualized dose optimization techniques were used for this CT. COMPARISON: Chest x-ray dated December 22, 2023 FINDINGS: Moderate left lower lobe atelectasis with air bronchograms and mild superimposed patchy pneumonic consolidation with interstitial thickening and edema in the surrounding parenchyma is present. The remaining bilateral lung larios are clear. No demonstrated pleural effusion. Normal trachea and mainstem bilateral bronchi. No nodules or masses or spiculated lesions are present. Normal enhancement of the main pulmonary artery and right and left pulmonary arteries. Normal enhancement of the bilateral peripheral pulmonary arteries. There is no demonstrated pulmonary embolism. Normal thoracic aorta and visualized great vessels. There is no demonstrated aortic dissection. Normal heart and pericardium. There are minor proximal LAD calcification. Normal mediastinum. Normal hilar regions. Normal visualized trachea and bronchi. The lungs are well expanded. Normal pleura. Normal chest wall structures. There are degenerative changes of thoracic spine. Normal visualized upper abdomen. CT/CTA Chest W/WO Contrast IMPRESSION: 1. Moderate left lower lobe atelectasis with air bronchograms and mild superimposed patchy pneumonic consolidation with interstitial thickening and edema in the surrounding parenchyma is present. The remaining bilateral lung larios are clear. No demonstrated pleural effusion. Normal trachea and mainstem bilateral bronchi. 2. No demonstrated pulmonary embolism or arterial dissection. 3. A follow-up exam should be obtained within one month of treatment to ensure the process clears and no occult process is present. Electronically Signed: Agustín Houston MD at 15:32 EDT ,
[2023-12-22] MEDS: Ceftriaxone 1 GM/50 ML BAG IV (13:06)
--- NOTE | 2023-12-22 13:10 | NURSING ---
MED SURG MOSTELLER PNEUMONIA, HYPOXEMIA, LEUKOCYTOSIS
[2023-12-22] MEDS: Azithromycin 500 MG in Dextrose 5%-Water (250mL Bag) 250 ML 250 MG IV (13:33)
[2023-12-22] MEDS: 0.9% Saline Lock 10 ML Syringe IV (17:15)
[2023-12-23] VITALS (10 sets, daily range): BP systolic 125–148; BP diastolic 84–93; PULSE 83–131; RESP 14–20; TEMP 36.4–37.1; O2SAT 92–96
[2023-12-23] MEDS: Ipratropium/Albuterol Sulfate 3 ML AMPUL.NEB INHALATION ×2 (07:06→12:55)
[2023-12-23 07:14] LABS: Hematocrit 44.6 % (40-54); Hemoglobin 14.5 g/dL (13.0-16.5); Mean Corp Hgb Conc 32.5 g/dL (32-36); Mean Corpuscular Hgb 29.9 pg (27.0-32.0); Mean Platelet Vol. 10.3 fl (6.2-12.0); Platelet Count 391 K/mm3 (150-450); RBC Distribution Width CV 12.9 % (11.6-14.6); RBC Distribution Width SD 43.8 fl (35.1-43.9); Red Blood Count 4.85 M/mm3 (4.6-6.2); White Blood Count 21.8 K/mm3 (4.4-11.0)
[2023-12-23 07:49] LABS: Anion Gap 6 (5-15); BUN 12 mg/dL (7-18); BUN/Creat Ratio 14.3 RATIO (10-20); Calcium,Total 9.7 mg/dL (8.5-10.1); Chloride 106 mmol/L (98-107); Creatinine, Serum 0.84 mg/dL (0.70-1.30); EST Glomerular Filtration Rate 107 mL/min (>60); Est Glom Filt Rate - Afr Amer 129 mL/min (>60); Estimated Creatinine Clearance 141.97 ml/min; Glucose 138 mg/dL (74-106); Potassium 4.3 mmol/L (3.5-5.1); Sodium Level 139 mmol/L (136-145)
--- NOTE | 2023-12-23 10:18 | CASEMGMT ---
MARCIO PEREZ Assessment: Face to Face with pt for initial transition planning/care coordination assessment. MARCIO PEREZ introduced self and role at [facility], pt voices understanding and consents to assessment. Pt is A&O x4 and answers all questions appropriately at this time. Pt sitting up in chair in no distress with sig other at bedside. Pt agreeable to assessment with sig other present. Care providers, pharmacy, and demographics verified/updated. Admitting Dx: cap with hypoxia Strata Score: 1 PCP:Bryant, provided pt with a local healthcare directory pamphlet Specialists:[facility] Preferred Pharmacy:[facility] Insurance: Self Pay Prescription Benefit: no LNOK: Vadim Braden, sig other Living Arrangements: Pt lives with sig other and her dtr in a two story home with 1 step to enter. Pt reports he is I in ADLs and denies concerns at home. Transportation: Pt drives self and denies concerns with transportation. DME:Denies HHC/SNF: Denies hx of Pt states no concerns with going home at time of dc. Pt states no further concerns/needs. CM to follow. Advised pt to ask CM if any further question/concerns/needs arise, voices understanding. Pt Goal: Home Plan: Home, follow for pushpa Daniel RN, CM
[2023-12-23] MEDS: Azithromycin 500 MG in Dextrose 5%-Water (250mL Bag) 250 ML 250 MG IV (10:29)
--- NOTE | 2023-12-23 12:07 | PCM.PN.HOSP ---
Reason for Visit Reason for Visit: Diagnoses Pneumonia, unspecified organism (12/22/23) Hypoxemia (12/22/23) Objective Data Objective Data Vital Signs: Vital Signs Temp Pulse Resp BP Pulse Ox O2 Del Method O2 Flow Rate 97.6 F L 92 14 125/84 H 96 Room Air 2 12/23/23 11:00 12/23/23 11:00 12/23/23 11:00 12/23/23 11:00 12/23/23 11:00 12/23/23 11:00 12/23/23 07:25 Oxygen Flow Rate (L/min) 2 Oxygen Delivery Method Room Air Weight: 109.543 kg Body Mass Index (BMI) 34.6 Intake & Output: Intake and Output for Last 24 Hours 12/21/23 12/22/23 12/23/23 23:59 23:59 23:59 Intake Total 1517.5 / 1917.5 1055 / 1055 Balance 1517.5 / 1917.5 1055 / 1055 Medical Nutrition Assessment Dietitian: Malnutrition Criteria Met Start: 12/23/23 11:55 Freq: Status: Active Protocol: Document 12/23/23 11:55 SLA (Rec: 12/23/23 11:55 SLA [email or web address]) Nutrition Malnutrition Evidence of Malnutrition Exists Yes Malnutrition (severe): Acute Illness/Injury Evidenced By Suboptimal Energy Intake ( Severe),Weight Loss (Severe) Clinical Problem Acute Disease or Injury Related Malnutrition Etiology related to acute illness and suboptimal energy intake Signs/Symptoms as evidenced by po intake meeting <75% of est nutritional needs and 3.4% unintentional wt loss x 1 wk Status Active Problem Recommendation Dietitian Recommendations/Changes Will liberalize diet to Regular d/t signs and symptoms of malnutrition. Monitor for changes in pt nutritional status and provide ONS if additional decrease in appetite/wt. Lab / Micro Data 12/23/23 06:20 12/23/23 06:20 Labs: Laboratory Results - last 24 hr 12/23/23 06:20: WBC 21.8 H, RBC 4.85, Hgb 14.5, Hct 44.6, MCV 92.0, MCH 29.9, MCHC 32.5, RDW Std Deviation 43.8, RDW Coeff of Keyur 12.9, Plt Count 391, MPV 10.3, Sodium 139, Potassium 4.3, Chloride 106, Carbon Dioxide 27.0, Anion Gap 6, BUN 12, Creatinine 0.84, Estim Creat Clear Calc 141.97, Est GFR (MDRD) Af Amer 129, Est GFR (MDRD) Non-Af 107, BUN/Creatinine Ratio 14.3, Glucose 138 H, Calcium 9.7 Micro: Microbiology 12/22/23 17:15 Mucosa - Nasopharyngeal Respiratory Panel (PCR) - Final 12/22/23 13:35 Urine, Clean Catch Legionella Antigen - Final 12/22/23 13:35 Urine, Clean Catch Streptococcus pneumoniae Antigen (M - Final Radiography Diagnostic Testing: Radiology Impression Chest CTA 12/22/23 12:52 IMPRESSION: 1. Moderate left lower lobe atelectasis with air bronchograms and mild superimposed patchy pneumonic consolidation with interstitial thickening and edema in the surrounding parenchyma is present. The remaining bilateral lung larios are clear. No demonstrated pleural effusion. Normal trachea and mainstem bilateral bronchi. 2. No demonstrated pulmonary embolism or arterial dissection. 3. A follow-up exam should be obtained within one month of treatment to ensure the process clears and no occult process is present. Electronically Signed: Agustín Houston MD at 15:32 EDT ,
[2023-12-23] MEDS: Ceftriaxone 1 GM/50 ML BAG IV (13:10)
[2023-12-23] MEDS: 0.9% Normal Saline (250mL Bag) 250 ML 15 ML IV (13:20)
--- NOTE | 2023-12-23 14:07 | CASEMGMT ---
Social Work- SW met with pt and SO to discuss self-pay status. Pt does not qualify for medicaid and filled out the HCAP form already. Pt states that he makes too much money to qualify for any community resources. Pt reports he gets medications through [employer] who runs them through a national database for discounts. Pt declined prescription assistance information at this time. SW will continue to follow for any changes. PHILLIP Main
--- NOTE | 2023-12-23 15:48 | DCINST_ITS ---
Discharge Instructions Diet Discharge Diet: 1999 Calorie Control Diet Activity Discharge Activity: No Restrictions Follow Up Care Test Results: Test results from this visit will be discussed in further detail at your follow- up appointment, if applicable. Discharge Plan Admission Admit Date/Time: 12/22/23 12:54 Primary Reason for Your Visit: Shortness of breath and cough Attending Provider: Celso Cain Primary Care Provider: Cami Physician,Paula Primary Instructions Additional Instructions / Restrictions: Please complete courses of antibiotics and steroids for your pneumonia as noted below. Please establish with a primary care doctor and have a repeat chest x- ray done in 4 to 6 weeks to ensure resolution of your pneumonia. Discharge Orders/Prescriptions Prescriptions: New amoxicillin-pot clavulanate 875-125 mg tablet 1 tab PO BID 6 Days Qty: 12 0RF prednisone 20 mg tablet 40 mg PO DAILY 4 Days Qty: 8 0RF Continued albuterol sulfate [Ventolin HFA] 90 mcg/actuation HFA aerosol inhaler 1 - 2 puff inhalation Q4H PRN PRN (Reason: Wheezing) Qty: 8.5 1RF Referrals / Follow Up: Care Physician,No Primary [Primary Care Provider] - Disposition Disposition (needs filled in before D/C Order can be placed): Home, Self Care
--- NOTE | 2023-12-23 15:51 | DS.PCM_ITS ---
Providers Date of Admission: 12/22/23 Date of Discharge: 12/23/23 Primary Care Physician: No Primary Care Phys Reason For Visit: COMMUNITY-ACQUIRED PNEUMONIA WITH HYPOXIA Diagnosis Discharge Diagnosis (1) Community acquired pneumonia: Status: Acute Code(s): J18.9 - Pneumonia, unspecified organism (2) Hypoxia: Status: Acute Code(s): R09.02 - Hypoxemia Medications at Discharge Home Medications albuterol sulfate 90 mcg/actuation aerosol inhaler (Ventolin HFA) 1 - 2 puff inhalation Q4H PRN PRN Wheezing #8.5 grams 12/23/23 amoxicillin 875 mg-potassium clavulanate 125 mg tablet 1 tab PO BID 6 days #12 tabs 12/23/23 prednisone 20 mg tablet 40 mg (2 x 20 mg) PO DAILY 4 days #8 tabs 12/23/23 Hospital Course Operations None Procedures EKG and - (Chest x-ray, CTA chest) Summary of Care Provided Minutes Spent on Discharge: 35 Hospital Course: Patient is a 43-year-old male who presented to [facility] ED on 12/22/2023 with worsening cough and shortness of breath. Short hospital course as noted below. Patient discharged home in stable condition on 12/22. 1. Community-acquired pneumonia with acute mild hypoxia ? Chest x-ray on admit showed concern for left lower lobe pneumonia, and CTA chest on admit showed no PE but also showed moderate left lower lobe consolidation consistent with pneumonia. Hypoxic to mid 80s on room air in ED, does not wear oxygen at baseline. COVID/flu/RSV negative. Urine antigens negative. Respiratory PCR panel negative. Was unable to produce sputum sample. Treated with IV steroids, IV antibiotics and scheduled DuoNebs while inpatient with very good improvement. Was weaned off supplemental oxygen on 12/22 and did not need oxygen on discharge. Discharged home on short courses of prednisone and Augmentin to complete treatment for pneumonia. Also refilled his home albuterol inhaler. Recommended that patient establish with a PCP and have repeat chest imaging done in 4 to 6 weeks to confirm resolution of pneumonia process. 2. Tobacco abuse ? Current smoker, smokes about half pack per day. 10 to 15-year smoking history. Did not need nicotine replacement therapy while inpatient. Encouraged cessation on discharge. 3. Obesity ? BMI 34 on admit. Encouraged lifestyle modifications. Complicated hospital course, care and prognosis. *Patient notably was admitted under inpatient status for community-acquired pneumonia with hypoxia but improved more quickly than anticipated. Was able to be discharged home on hospital day 2. Total clinical time spent by myself addressing the patient's medical issues, reviewing all the data, and collaborating with patient's care team: 35 minutes. Physical Exam Const alert, oriented x3 and no apparent distress Constitutional Narrative: Pleasant middle-age male, obese, energy improved from admission, sitting up comfortably in bed, conversing normally, in no acute distress. General Appearance: cooperative and comfortable HEENT normocephalic, head/scalp atraumatic, hearing grossly normal bilaterally and nasal mucous membranes and turbinates normal Eyes PERRL, EOMs intact bilaterally and conjunctivae normal Neck full ROM Chest inspection of chest normal Resp normal respiratory effort and no use of accessory muscles Resp Narrative: Appears improved from admission. Breathing comfortably on 2 L nasal cannula at rest with oxygen saturations in the mid 90s. No wheezing or crackles noted on hospital day 2. Notably was weaned off nasal cannula on afternoon of discharge without issue. Cardio regular rate, regular rhythm, no murmurs and peripheral pulses 2+ throughout GI normal to inspection, nondistended, normoactive bowel sounds, soft to palpation, non-tender and non-distended Back/Spine normal ROM Extremity normal to inspection, full ROM and no pedal edema Skin no rashes or lesions noted Neuro moves all extremities and no focal motor deficits Speech: speech normal Psych mental status grossly normal Medical Records Data Medical Nutrition Assessment Dietitian: Malnutrition Criteria Met Start: 12/23/23 11:55 Freq: Status: Active Protocol: Document 12/23/23 11:55 LORENE (Rec: 12/23/23 11:55 SLA [email or web address]) Nutrition Malnutrition Evidence of Malnutrition Exists Yes Malnutrition (severe): Acute Illness/Injury Evidenced By Suboptimal Energy Intake ( Severe),Weight Loss (Severe) Clinical Problem Acute Disease or Injury Related Malnutrition Etiology related to acute illness and suboptimal energy intake Signs/Symptoms as evidenced by po intake meeting <75% of est nutritional needs and 3.4% unintentional wt loss x 1 wk Status Active Problem Recommendation Dietitian Recommendations/Changes Will liberalize diet to Regular d/t signs and symptoms of malnutrition. Monitor for changes in pt nutritional status and provide ONS if additional decrease in appetite/wt. Weight / BMI Weight Weight: 109.543 kg Body Mass Index (BMI) 34.6 ABG / Lab / Microbiology Data 12/23/23 06:20 12/23/23 06:20 Laboratory: Laboratory Results - last 24 hr 12/23/23 06:20: WBC 21.8 H, RBC 4.85, Hgb 14.5, Hct 44.6, MCV 92.0, MCH 29.9, MCHC 32.5, RDW Std Deviation 43.8, RDW Coeff of Keyur 12.9, Plt Count 391, MPV 10.3, Sodium 139, Potassium 4.3, Chloride 106, Carbon Dioxide 27.0, Anion Gap 6, BUN 12, Creatinine 0.84, Estim Creat Clear Calc 141.97, Est GFR (MDRD) Af Amer 129, Est GFR (MDRD) Non-Af 107, BUN/Creatinine Ratio 14.3, Glucose 138 H, Calcium 9.7 Microbiology: Microbiology 12/22/23 17:15 Mucosa - Nasopharyngeal Respiratory Panel (PCR) - Final 12/22/23 13:35 Urine, Clean Catch Legionella Antigen - Final 12/22/23 13:35 Urine, Clean Catch Streptococcus pneumoniae Antigen (M - Final D/C Instructions Discharge Diet: 2000 Calorie Control Diet Meaningful Use Info Meaningful Use Meaningful Use Diagnoses (Choose all that apply): None applicable Ischemic Stroke Statin Dosing Therapy Reference: STATIN DOSE THERAPY REFERENCE: * Patients > 75 years receive moderate or high dose statin therapy. * Patients 75 years or YOUNGER should receive HIGH intensity statin dose unless contraindicated. You will be required to document reason for non-treatment if statin daily dose does not meet guidelines. HIGH DOSE STATIN THERAPY DAILY Atorvastatin > than or = to 40 mg Rosuvastatin > than or = to 20 mg Amlodipine + Atorvastatin > than or = to 2.5/40 mg Ezetimibe + Simvastatin 10/80 mg Simvastatin 80mg Discharge Plan Admission Admit Date/Time: 12/22/23 12:54 Primary Reason for Your Visit: Shortness of breath and cough Attending Provider: Celso Cain Primary Care Provider: Care Physician,No Primary Instructions Additional Instructions / Restrictions: Please complete courses of antibiotics and steroids for your pneumonia as noted below. Please establish with a primary care doctor and have a repeat chest x- ray done in 4 to 6 weeks to ensure resolution of your pneumonia. Discharge Orders/Prescriptions Prescriptions: New amoxicillin-pot clavulanate 875-125 mg tablet 1 tab PO BID 6 Days Qty: 12 0RF prednisone 20 mg tablet 40 mg PO DAILY 4 Days Qty: 8 0RF Continued albuterol sulfate [Ventolin HFA] 90 mcg/actuation HFA aerosol inhaler 1 - 2 puff inhalation Q4H PRN PRN (Reason: Wheezing) Qty: 8.5 1RF Referrals / Follow Up: Care Physician,No Primary [Primary Care Provider] - Disposition Disposition (needs filled in before D/C Order can be placed): Home, Self Care Charges/Coding Visit Charges Inpatient E&M: 01375 Disch Hosp >30min
== END 2023-12-23 16:44 | disposition home or self-care (01) | DRG 193 ==
LOC: ED 12:31 → MS3 13:36
PROVIDERS: Admitting Provider Hospitalist; Emergency Provider Emergency Medicine; Visit Provider Hospitalist
DX: J18.9 Pneumonia, unspecified organism (principal); E43 Unspecified severe protein-calorie malnutrition; E66.9 Obesity, unspecified; F17.210 Nicotine dependence, cigarettes, uncomplicated; Z68.34 Body mass index [BMI] 34.0-34.9, adult
CPT/HCPCS: 71046; 71275; 80048; 84484; 85025; 85027; 85379; 87040; 87449; 87633; 93005; 94640; 94668; 97802; 99284; Q9967; A4216